=== PATIENT | male | born 1980 | race Caucasian/White ===

== ENCOUNTER → 2017-08-15 | Outpatient (CLI) | payer BC ==
--- NOTE | 2017-08-15 13:05 | DIAGNOSTIC IMAGING REPORT ---
(TESTICULAR) SCROTUM-CONT CLINICAL HISTORY: 36 years-old Male with N50.9. Acute palpable abnormality of the scrotum on the left. COMPARISON STUDY: None available TECHNIQUE: Real-time, grayscale, and color Doppler sonography of the testes and scrotum is performed. Images are reviewed in the transverse and longitudinal planes. FINDINGS: RIGHT HEMISCROTUM: The right testis measures 5.1 x 2.3 x 3.6 cm and the parenchyma appears unremarkable. No intratesticular mass is seen. Normal-appearing arterial inflow is present within the right testicle. The right epididymal head appears normal. No varicocele or hydrocele is identified. LEFT HEMISCROTUM: The left testis measures 5.0 x 2.0 x 3.1 cm and the parenchyma appears unremarkable. No intratesticular mass is seen. Normal-appearing arterial inflow is present within the left testicle. There is a small cyst of the left epididymal head, 0.3 x 0.1 cm correlating with area of reported palpable concern.. No varicocele or hydrocele is identified. IMPRESSION: 1. Normal sonographic appearance of the bilateral testicles without evidence of testicular mass or torsion. 2. Small cyst of the left epididymal head measuring 0.3 cm correlates with area of palpable concern. 3. No large hydrocele or varicocele identified. The above report was generated using voice recognition software. It may contain grammatical, syntax or spelling errors. Electronically signed by: Tej Booth M.D. 08/15/2017 1:03 PM Dictated Date/Time: 08/15/2017 1:01 PM
== END | disposition home or self-care (01) ==
LOC: C.ULTR 11:41
PROVIDERS: ATTEND Urology
DX: N20.9 Urinary calculus, unspecified (principal); N50.3 Cyst of epididymis